=== PATIENT | male | born 1985 | race Hispanic/Latino ===

== ENCOUNTER 2020-06-19 16:39 | Emergency (ER) | payer SELFPAY ==
[~2020-06-19] VITALS: Ht 162.6 cm; Wt 90.0 kg
[~2020-06-19 16:39] MED LIST: ALDACTONE25 MG PO; ATIVAN1 M1 PO; CIPROFLOXACN500 MG PO; LASIX 40 MG40 MG/TAB PO; LORTAB 7.57.5 MG PO; METRONIDAZOLE500 MG PO; SPIRONOLACTONE25 MG PO; VITAMIN B-625 MG PO
[2020-06-19 17:33] LABS: HEMATOCRIT 33.9 % (39.0-50.0); HEMOGLOBIN 11.5 g/dl (14.0-18.0); IMMATURE GRANULOCYTES 0.5 % (0.0-5.0); MEAN CORPUSCULAR HGB 35.3 pG CALC (26.0-32.0); MEAN CORPUSCULAR HGB CONC 33.9 g/dL CAL (32.0-36.0); NEUT# 11.85 thou/uL (1.82-7.42); RED BLOOD COUNT 3.26 mill/uL (4.70-6.10); RED CELL DISTRI WIDTH 15.7 % (11.5-15.5)
[2020-06-19 17:53] LABS: BUN 4 mg/dL (9-20); BUN/CREATININE RATIO 11 (12-20 (CALC)); CARBON DIOXIDE 27 mmol/l (22-30); CREATININE 0.3 mg/dL (0.7-1.3); GFR > 60 ML/MIN (>=60 (CALC)); GFR FOR AFR.AMER. > 60 ML/MIN (>=60 (CALC)); LIPASE 217 u/l (23-300)
[2020-06-19 17:57] LABS: ALBUMIN 3.3 g/dL (3.2-5.0); ALKALINE PHOSPHATASE 409 u/l (38-126); ANION GAP 15 (6-22 (CALC)); BILIRUBIN, TOTAL 3.5 mg/dL (0.0-1.4); CHLORIDE 87 mmol/l (95-108); SGOT/AST 123 u/l (17-59); SODIUM 125 mmol/l (137-146)
[2020-06-19 19:08] VITALS: BP 124/89
[2020-06-19 19:20] LABS: INTERNATIONAL NORMALIZED RATIO 1.3 RATIO (0.7-1.3); PROTHROMBIN TIME 12.4 SECONDS (9.0-12.5)
== END 2020-06-19 19:08 | disposition short-term general hospital (02) | DRG 434 ==
LOC: ED 16:39
PROVIDERS: Family Medicine
DX: K70.31 Alcoholic cirrhosis of liver with ascites (principal); F10.10 Alcohol abuse, uncomplicated; Z20.828 Contact with and (suspected) exposure to other viral communicable diseases

== ENCOUNTER 2020-11-14 15:30 | Inpatient (IN) | payer SELFPAY ==
[~2020-11-14] VITALS: Ht 162.6 cm; Wt 63.6 kg
--- NOTE | 2020-11-14 15:31 | NUR ---
PT IMMEADIATELY TO ROOM # [address] NOGUEIRA BEDSIDE FOR EVAL.
[2020-11-14 16:05] LABS: HEMATOCRIT 35.5 % (39.0-50.0); HEMOGLOBIN 11.5 g/dl (14.0-18.0); IMMATURE GRANULOCYTES 0.1 % (0.0-5.0); MEAN CELL VOLUME 104.7 fL CALC (80.0-100.0); MEAN CORPUSCULAR HGB 33.9 pG CALC (26.0-32.0); MEAN CORPUSCULAR HGB CONC 32.4 g/dL CAL (32.0-36.0); NEUT# 5.12 thou/uL (1.82-7.42); RED BLOOD COUNT 3.39 mill/uL (4.70-6.10); RED CELL DISTRI WIDTH 13.6 % (11.5-15.5)
[2020-11-14 16:23] LABS: URINE BILIRUBIN - DIPSTICK NEGATIVE (NEGATIVE); URINE BLOOD DIPSTICK NEGATIVE (NEGATIVE); URINE COLOR YELLOW; URINE GLUCOSE - DIPSTICK NEGATIVE (NEGATIVE); URINE KETONE NEGATIVE (NEGATIVE); URINE LEUK ESTERASE NEGATIVE (NEGATIVE); URINE NITRITE - DIPSTICK NEGATIVE (Negative); URINE PROTEIN - DIPSTICK NEGATIVE (NEG-TRACE); URINE SPECIFIC GRAVITY >=1.030; URINE UROBILINOGEN - DIPSTICK 0.2 E.U./dL (0.2)
[2020-11-14 16:24] LABS: ALBUMIN 3.5 g/dL (3.2-5.0); ALKALINE PHOSPHATASE 253 u/l (38-126); AMYLASE 75 u/l (30-110); BUN 7 mg/dL (9-20); BUN/CREATININE RATIO 17 (12-20 (CALC)); CREATININE 0.4 mg/dL (0.7-1.3); GFR > 60 ML/MIN (>=60 (CALC)); GFR FOR AFR.AMER. > 60 ML/MIN (>=60 (CALC)); LIPASE 123 u/l (23-300); POTASSIUM 3.4 mmol/l (3.5-5.1); SGOT/AST 46 u/l (17-59)
[2020-11-14 16:29] LABS: ANION GAP 9 (6-22 (CALC)); BILIRUBIN, TOTAL 1.8 mg/dL (0.0-1.4); CARBON DIOXIDE 33 mmol/l (22-30); CHLORIDE 99 mmol/l (95-108); SODIUM 138 mmol/l (137-146); TOTAL PROTEIN 9.7 g/dL (6.3-8.2)
[2020-11-14 16:33] LABS: ACT PARTIAL THROMBO TIME 31.2 SECONDS (20.0-32.5); INTERNATIONAL NORMALIZED RATIO 1.3 RATIO (0.7-1.3); PROTHROMBIN TIME 12.8 SECONDS (9.0-12.5)
--- NOTE | 2020-11-14 17:28 | NUR ---
PT CONTINUING TO BE TAPPED AT THIS TIME BY ED PHYSICIAN. 10LITERS OF FLUID REMOVED CURRENTLY. TOLERATING WELL. AT BEDSIDE. BP IMPROVED.
--- NOTE | 2020-11-14 18:49 | NUR ---
PT RESTING. VITALS STABLE ON MONITOR. REMAINS AT BEDSIDE. REPORT GIVEN TO CHUCK AMARO.
--- NOTE | 2020-11-14 20:00 | NUR ---
ATTEMPTED TO CALL REPORT. RN NOT AVAILABLE.
--- NOTE | 2020-11-14 21:00 | NUR ---
ATTEMPTED TO CALL REPORT. RN NOT AVAILABLE.
--- NOTE | 2020-11-14 21:23 | NUR ---
PARACENTESIS DRAIN DISLODGED. ADVISED FEDERICO SALINAS, REPEATER CHIEF
--- NOTE | 2020-11-14 22:05 | NUR ---
Admission Note Report Given to: CHUCK HOWARD Transported by: Wheelchair X Stretcher Transported with: X Nurse Transporter X Patent IV O2 City Superintendent Location: ICU X [facility]
[2020-11-15 04:00] VITALS: BP 109/58
[2020-11-15 05:58] LABS: HEMATOCRIT 32.6 % (39.0-50.0); HEMOGLOBIN 10.5 g/dl (14.0-18.0); IMMATURE GRANULOCYTES 0.1 % (0.0-5.0); MEAN CELL VOLUME 103.2 fL CALC (80.0-100.0); MEAN CORPUSCULAR HGB 33.2 pG CALC (26.0-32.0); MEAN CORPUSCULAR HGB CONC 32.2 g/dL CAL (32.0-36.0); NEUT# 5.62 thou/uL (1.82-7.42); RED BLOOD COUNT 3.16 mill/uL (4.70-6.10); RED CELL DISTRI WIDTH 13.3 % (11.5-15.5)
[2020-11-15 06:16] LABS: ALBUMIN 2.8 g/dL (3.2-5.0); ALKALINE PHOSPHATASE 149 u/l (38-126); ANION GAP 7 (6-22 (CALC)); BUN 4 mg/dL (9-20); BUN/CREATININE RATIO 12 (12-20 (CALC)); CARBON DIOXIDE 35 mmol/l (22-30); CHLORIDE 98 mmol/l (95-108); CREATININE 0.4 mg/dL (0.7-1.3); GFR > 60 ML/MIN (>=60 (CALC)); GFR FOR AFR.AMER. > 60 ML/MIN (>=60 (CALC)); POTASSIUM 3.8 mmol/l (3.5-5.1); SGOT/AST 35 u/l (17-59); SODIUM 136 mmol/l (137-146)
[2020-11-15 06:17] LABS: BILIRUBIN, TOTAL 3.4 mg/dL (0.0-1.4); TOTAL PROTEIN 6.8 g/dL (6.3-8.2)
[2020-11-15 07:12] VITALS: BP 103/70
--- NOTE | 2020-11-15 07:12 | NUR ---
PT IN BED WATCHING TV. A&O X3. O2 VIA ROOM AIR 87-88%. O2 VIA NC @2L APPLIED, O2 SUSTAINING 90-93%. ABD DISTENDED AND FIRM, CREPITUS FLET UPON PALPATION OF ABD. PER LOAN INTERVIEWER MORTGAGE REPORT AFTER PT BEING TAPPED IN ED AND REMOVING 12.5L OF FLUID, PT CONTINUED TO DRAIN AND COLOSTOMY BAG WAS PLACED TO HELP WITH DRAINAGE. UPON ASSESSMENT NO ACTIVE DRAINAGE NOTED. PT REPORTS NOT BEING ABLE TO FOLLOW UP WITH PCP OR OBTAIN MEDICATIONS THAT WERE NEEDED DUE TO HIS FINANCIAL STATUS. ASSESSMENT COMPLETED. DISCUSSED POC. CALL LIGHT IN REACH. CONTINUE TO MONITOR.
--- NOTE | 2020-11-15 07:19 | NUR ---
pt admitted to [facility] floor from ER on the evening of 11/14/20, pt alert and able to make needs known, severe abd ascites noted medicated for pain twice this shift with good results, no acute disteress noted at this time
--- NOTE | 2020-11-15 08:45 | NUR ---
DR PINEDA AT BEDSIDE DISCUSSING POC
[2020-11-15 10:50] VITALS: BP 125/81
--- NOTE | 2020-11-15 12:07 | NUR ---
PT C/O OF PAIN 08/03. PT MEDICATED WITH PRN PAIN MEDICATION.
[2020-11-15 15:25] VITALS: BP 90/53
--- NOTE | 2020-11-15 17:11 | NUR ---
PT MEDICATED WITH PAIN MEDICATION. PAIN 9/10. WILL REASSESS PAIN. PT CURRENTLY LEAKING AT TAPPING SITE, GOWN AND SHEETS SATURATED. COLOSTOMY BAG PLACED ON SITE. FLUID COLLECTING IN COLOSTOMY BAG. YELLOW AND CLEAR IN APPEARANCE. PT REPORTS IMPROVEMENTS NOTED IN HIS LEG SWELLING AND ABD SWELLING. ABD GIRTH SLIGHTLY SMALLER COMPARED TO THIS MORNING, NOT CREPITUS FELT. CALL LIGHT IN REACH. CONTINUE TO MONITOR.
[2020-11-15 19:11] VITALS: BP 98/53
--- NOTE | 2020-11-15 21:20 | NUR ---
ASSESSMENT COMPLETED AND MEDICATION ADMINISTERED AT THIS TIME. R.SIDE FLANK PUCTURE WOUND IS DRAINING CLEAR YELLOW DRAINAGE COLLECTED IN COLOSTOMY BAG, EMPTIED AT 400CC. URINAL EMPTIED ALSO AT THIS TIME 350CC OF FIDEL URINE EMPTIED. PT MEDICATED FOR PAIN REPORTED IN ABD, BACK AND BLE. HE REPORTS PAIN RADIATING FROM ABD DOWN TO HIS LEGS. PT APPEARS LOCX4, BROKEN UKRAINIAN/ASSISTANCE TRANSLATING PROVIDED BY EMPLOYEE COMMUNICATIONS MANAGER ON FLOOR. PT ALSO ASKED FOR ICECREAM/PROVIDED. CALL LIGHT W/IN REACH.
--- NOTE | 2020-11-16 00:53 | NUR ---
PT MEDICATED FOR PAIN, HE WAS HEARD WRITHING IN PAIN OUT IN THE CLINE. PT REPORTS 10/10 ON PAIN SCALE. REPORTS PAIN IS ALL OVER, STARTING IN UPPER ABD AND RADIATING TO FEET. TRANSLATION BY JESSI RICHTER. PT PROVIDED JUICE AND WATER REQUESTED AT THIS TIME. SITE TO RIGHT FLANK DRAINING INTO COLOSTOMY BAG, EMPTIED OF 400CC OF CLEAR YELLOW DRAINAGE AT THIS TIME.
--- NOTE | 2020-11-16 02:14 | NUR ---
PT APPEARS TO BE SLEEPING AT THIS TIME. DID NOT AWAKE TO MY ENTERING ROOM.
[2020-11-16 03:56] VITALS: BP 106/69
[2020-11-16 05:31] LABS: HEMATOCRIT 33.3 % (39.0-50.0); HEMOGLOBIN 10.7 g/dl (14.0-18.0); MEAN CELL VOLUME 103.4 fL CALC (80.0-100.0); MEAN CORPUSCULAR HGB 33.2 pG CALC (26.0-32.0); MEAN CORPUSCULAR HGB CONC 32.1 g/dL CAL (32.0-36.0); RED BLOOD COUNT 3.22 mill/uL (4.70-6.10); RED CELL DISTRI WIDTH 13.2 % (11.5-15.5)
[2020-11-16 05:55] LABS: ANION GAP 7 (6-22 (CALC)); BUN 6 mg/dL (9-20); BUN/CREATININE RATIO 14 (12-20 (CALC)); CARBON DIOXIDE 36 mmol/l (22-30); CHLORIDE 95 mmol/l (95-108); CREATININE 0.4 mg/dL (0.7-1.3); GFR > 60 ML/MIN (>=60 (CALC)); GFR FOR AFR.AMER. > 60 ML/MIN (>=60 (CALC)); MAGNESIUM 1.6 mg/dL (1.6-2.3); POTASSIUM 3.7 mmol/l (3.5-5.1); SODIUM 134 mmol/l (137-146)
--- NOTE | 2020-11-16 06:03 | NUR ---
PT CALLED FOR PAIN MEDICATION. HE WAS CRYING IN PAIN WHEN I ENTERED THE ROOM. HE REPORTS THAT THE MORPHINE DOES HELP, IT JUST DOESN'T LAST LONG ENOUGH. PT 500CC OF CLEAR YELLOW DRAINAGE EMPTIED FROM PEROCENTESIS SITE TO RIGHT FLANK SIDE. ABD IS VERY DISTENDED. PT IS ASKING FOR JUICE/PROVIDED.
--- NOTE | 2020-11-16 07:33 | NUR ---
Patient is screened for intervention and no needs are identified at this time
[2020-11-16 08:00] VITALS: BP 103/57
--- NOTE | 2020-11-16 08:00 | NUR ---
ASSESSMENT IS COMPLTED: IV SITE IS FREE FROM REDNESS OR EDEMA. HR IS REG,PULSES ARE FAST, ABD IS DISTENDED AND FIRN, COLOSTOMY BAG THAT IS ON COLLECTING CLEAR YELLOW ASCITES FLUID. BREATH SOUNDS CLEAR AND DIMINISHED BILATERALLY.. CONTINEU TO OSBERVE AND MONITOR,.
--- NOTE | 2020-11-16 12:15 | NUR ---
PT IS RELAXING IN BED WITH NO DISTRES NOTED. IV SITE IS FREE FROM REDNESS OR EDEMA.
[2020-11-16 16:00] VITALS: BP 123/71
--- NOTE | 2020-11-16 16:00 | NUR ---
PT IS RELAXING IN BED NO DISTRESS NOTED
[2020-11-16 20:00] VITALS: BP 106/58
[2020-11-16 20:50] VITALS: BP 106/58
--- NOTE | 2020-11-16 21:15 | NUR ---
OTHER NURSE ON THE FLOOR MEDICATED PT FOR PAIN 10/10 ON PAIN SCALE AND PM MEDICATION. HE WAS CRYING IN PAIN SHE REPORTED. BUT SHE WAS LEAVING THE ROOM, THE PT ASKED FOR ICECREAM/PROVIDED.
--- NOTE | 2020-11-16 22:05 | NUR ---
ASSESSMENT COMPLETED AT THIS TIME AND DRAINAGE FROM RIGHT FLANK PUNCTURE SITE EMPTIED OF 400CC OF CLEAR YELLOW DISCHARGE. ACTIVE BOWEL SOUNDS, BUT ABD IS VERY DISTENDED AND MODERATELY FIRM. HERNIA VISUALIZED IN UMBILICUS AREA. LUNG SOUNDS ARE DIMINISHED, WITH MILD WHEEZE TO UPPER LOBES. PT REPORTS SMALL AMOUNT OF PAIN AT THIS TIME, STATES THAT THE MEDICATION ADMINISTERED DID HELP. HE IS ASKING FOR SOME TYPE OF FRUIT, WILL PROVIDE FRUIT CUP IF AVAILABLE.
--- NOTE | 2020-11-17 02:20 | NUR ---
PT MEDICATED FOR PAIN 9/10 ON PAIN SCALE. HE IS IN BED MOANING AND GROANING, HOLDING TIGHTLY TO BED RAIL. DRAINAGE FROM R.FLANK SIDE EMPTIED @300CC OF CLEAR THICK YELLOW DRAINAGE. WILL FOLLOW-UP FOR PAIN MONITORING. BREATH SOUNDS ARE CLEAR AT THIS TIME.
--- NOTE | 2020-11-17 03:49 | NUR ---
PT WAS ASLEEP I ENTERED THE ROOM, AWOKE TO MY ENTRANCE. V/S ASSESSED. HE IS HEARD MAKING SLIGHT MOANING SOUNDS, BUT RETURNS TO SLEEP PRIOR TO MY LEAVING THE ROOM.
[2020-11-17 03:51] VITALS: BP 101/66
--- NOTE | 2020-11-17 06:31 | NUR ---
PT MEDICATED FOR PAIN 10/10 ON PAIN SCALE. HE WAS CRYING OUT IN PAIN WITH TEARS ROLLING DOWN HIS FACE WHEN I ENTERED THE ROOM. APPEARS MUCH MORE COMFORTABLE PRIOR TO MY LEAVING THE ROOM. HE ASKED FOR ICECREAM AND JUICE I WAS LEAVING THE ROOM.
[2020-11-17 07:38] VITALS: BP 100/65
--- NOTE | 2020-11-17 08:45 | NUR ---
SHIFT CHANGE REPORT, PT AWAKE ALERT AND ORIENTED, C/O ABD PAIN @ 8/10, ABD SEVERELY DISTENDED WITH HYPERACTIVE SOUNDS, ASSISTED WITH SITTING UP AT BEDSIDE, MEAL TRAY SET UP, CALL PAUL IN REACH.
--- NOTE | 2020-11-17 12:00 | NUR ---
RESTING IN BED, MEDICAL TEAM ROUNDED, WILL CONTINUE TO MONITOR.
[2020-11-17 15:10] VITALS: BP 114/66
--- NOTE | 2020-11-17 15:56 | NUR ---
LYING IN SUPINE POSITION IN BED, PAIN CONTINUES WITH MINIMAL IMPROVEMENT WITH ANALGESICS, PROFUSE DRAINAGE FROM PARACENTHESIS SITE TO R. ABDOMEN CONTINUES, NEEDS ADDRESSED.
--- NOTE | 2020-11-17 19:55 | NUR ---
PATIENT RESTING IN BED WITH HOB ELEVATED MOANING AND CRYING IN ABD PAIN-MOSTLY YI SPEAKING. MEDICATED WITH MORPHINE 2MG IVF FOR SEVERE PAIN, ABD IS SEVERELY DISTENDED AND DRAINING SEROUS FLUID FROM RIGHT ABD PARACENTESIS SITE-P[OUCH INTACT AT THIS TIME. VOIDED 300CC OF FIDEL URINE IN URINAL. SALINE LOCK TO LAC SITE INTACT AND HEALTHY WITH GOOD BLOOD RETURN. CALL LIGHT IN REACH. WILL CONT TO MONITOR.
[2020-11-17 20:00] VITALS: BP 108/63
--- NOTE | 2020-11-17 21:42 | NUR ---
PATIENT RESTING IN BED-STILL WITH C/O ABD PAIN-08/03 MEDICATED WITH ROXICODONE 10MG PO ORDERED. VOIDED 300CC OF FIDEL URINE IN URINAL. CALL LIGHT IN REACH. WILL CONT TO MONITOR.
--- NOTE | 2020-11-17 22:28 | NUR ---
PATIENT RESTING IN BED-STATES SOME RELIEF FROM ROXICODONE GIVEN. ASKING FOR ICE CREAM. PARACENTESIS SITE POUCH EMPTIED FOR 200CC OF CLEAR YELLOW FLUID. CALL LIGHT IN REACH, WILL CONT TO MONITOR.
--- NOTE | 2020-11-17 23:53 | NUR ---
PATIENT RESTING IN BED-MOANING IN PAIN-10/10 ON PAIN SCALE PER PATIENT. MEDICATED WITH DILAUDID 1MG IVP FOR PAIN. CALL LIGHT IN REACH. WILL CONT TO MONITOR.
[2020-11-18] VITALS (7 sets, daily range): BP systolic 98–124; BP diastolic 64–79
--- NOTE | 2020-11-18 03:15 | NUR ---
PATIENT MOANING IN PAIN AGAIN-10/10 ON PAIN SCALE. TOO EARLY FOR DILAUDID-MEDICATED WITH ROXICODONE 10MG PO. VOIDED 400CC OF FIDEL URINE IN URINAL. PARACENRESIS SITE DRAINAGE 300CC OF CLEAR YELLOW FLUID. CALL LIGHT IN REACH. WILL CONT TO MONITOR.
--- NOTE | 2020-11-18 04:23 | NUR ---
PATIENT WITH LITTLE OR NO RELIEF FROM ROXICODONE GIVEN EARLIER. PATIENT STATES 10/10 ON PAIN SCALE. PATIENT WITH SEVERE ASCITES AND CONSTANT PAIN. PARACENTESIS SITE CONT TO DRAIN YELLOW FLUID CONSTANTLY. MEDICATED WITH DILAUDID 1MG IVP VIA LEFT AC SITE. SITE REMAINS HEALTHY. CALL LIGHT IN REACH. WILL CONT TO MONITOR.
--- NOTE | 2020-11-18 04:49 | NUR ---
PATIENT RESTING IN BED-STATES THAT HIS PAIN IS NOW 6/10. NO FURTHER COMP[LAINTS. CALL LIGHT IN REACH. WILL CONT TO MONITOR.
[2020-11-18 04:51] LABS: HEMATOCRIT 32.1 % (39.0-50.0); HEMOGLOBIN 10.7 g/dl (14.0-18.0); IMMATURE GRANULOCYTES 0.3 % (0.0-5.0); MEAN CELL VOLUME 100.9 fL CALC (80.0-100.0); MEAN CORPUSCULAR HGB 33.6 pG CALC (26.0-32.0); MEAN CORPUSCULAR HGB CONC 33.3 g/dL CAL (32.0-36.0); NEUT# 4.57 thou/uL (1.82-7.42); RED BLOOD COUNT 3.18 mill/uL (4.70-6.10); RED CELL DISTRI WIDTH 12.9 % (11.5-15.5)
[2020-11-18 05:08] LABS: INTERNATIONAL NORMALIZED RATIO 1.4 RATIO (0.7-1.3); PROTHROMBIN TIME 13.4 SECONDS (9.0-12.5)
[2020-11-18 05:12] LABS: ALBUMIN 2.5 g/dL (3.2-5.0); ALKALINE PHOSPHATASE 168 u/l (38-126); BUN 8 mg/dL (9-20); BUN/CREATININE RATIO 22 (12-20 (CALC)); CARBON DIOXIDE 33 mmol/l (22-30); CHLORIDE 96 mmol/l (95-108); CREATININE 0.4 mg/dL (0.7-1.3); GFR > 60 ML/MIN (>=60 (CALC)); GFR FOR AFR.AMER. > 60 ML/MIN (>=60 (CALC)); SGOT/AST 38 u/l (17-59); SODIUM 130 mmol/l (137-146); TOTAL PROTEIN 6.7 g/dL (6.3-8.2)
[2020-11-18 05:13] LABS: ANION GAP 6 (6-22 (CALC)); BILIRUBIN, TOTAL 1.5 mg/dL (0.0-1.4); POTASSIUM 4.6 mmol/l (3.5-5.1)
--- NOTE | 2020-11-18 05:44 | NUR ---
PATIENT UP TO THE BR-THINKS THAT HE HAS TO HAVE BM BUT ONLY GAS. BACK IN BED. PARACENTESIS SITE DRAINED ANOTHER 100CC OF CLEAR YELLOW FLUID. IV SITE TO LEFT AC INTACT AND REMAINS HEALTHY. TAKING PO LIQUIDS AND TOLERATING WELL. CALL LIGHT IN REACH. WILL CONT TO MONITOR.
--- NOTE | 2020-11-18 07:23 | NUR ---
PT RESTING IN BED, NO SIGNS OF DISTRESS NOTED, RESP EVEN AND UNLABORED. PT ALERT AND ORIENTED X3, DISCUSSED POC, PT ABD IS DISTENDED, NOTED DRAINAGE TO INCISION SITE FROM LAST PARACENTESIS. DRAINING INTO COLOSTOMY BAG, CLEAR YELLOW DRAINAGE. NOTED JAUDICE TO EYES, VERY DRY SKIN. PT MEDICATED PER MAR. ASSESSMENT COMPLETED, CALL LIGHT IN REACH,CONTINUE TO MONITOR.
--- NOTE | 2020-11-18 09:00 | NUR ---
INFORMATION CONSULTANT AT BEDSIDE TO MEDICATE PT FOR PAIN, MD AT BEDSIDE TO DISCUSS POC, PT ENCOURAGED TO GET OUT OF BED, PT STATES HE IS IN TOO MUCH PAIN, PT MEDICATED WITH DILAUDID. CALL LIGHT IN REACH,CONTINUE TO MONITOR.
--- NOTE | 2020-11-18 11:46 | NUR ---
PT RESTING IN BED MEDICATED FOR PAIN, PT THEN ASKING WHEN HE CAN HAVE IV PAIN MEDICATION, INFORMED PT THAT PAIN MEDICATION WILL NOT TAKE PAIN COMPLETELY AWAY BUT WILL HELP SO PT MAY GET OUT OF BED AND BE COMFORTABLE, AGAIN ENCOURAGED PT TO GET OUT OF BED, CALL LIGHT IN REACH,CONTINUE TO MONITOR.
--- NOTE | 2020-11-18 13:29 | NUR ---
PT AMBULATED BACK FROM BATHROOM, STATES HE IS PASSING GAS BUT NO BM, PT MEDICATED FOR PAIN, CALL LIGHT IN REACH,CONTINUE TO MONITOR.
--- NOTE | 2020-11-18 16:29 | NUR ---
PT RESTING IN RECLINER AT BEDSIDE, NO SIGNS OF DISTRESS NOTED, RESP EVEN AND UNLABORED. PT MEDICATED PER JAN. CALL LIGHT IN REACH,CONTINUE TO MONITOR.
--- NOTE | 2020-11-18 17:46 | NUR ---
PT RESTING IN BED C/O PAIN, BAG EMPTIED OF 100CC OF CLEAR STRAW-COLORED URINE. CALL LIGHT IN REACH, CONTINUE TO MONITOR.
--- NOTE | 2020-11-18 19:39 | NUR ---
ASSESSMENT COMPLETED. PT. SITTING UP AT THE SIDE OF THE BED C/O SLIGHT NAUSEA AND GIVEN L[place]ON [place]. PT. INQUIRING ABOUT PAIN MEDS AND REVIEWED FREQUENCIES WITH HIM; VERBALIZES UNDERSTANDING. EMPTIED 100 MLS FROM BAG TO RLQ OF YELLOW CLEAR DRAINAGE. ABD DISTENDED AND BS ACTIVE; URINAL AT BEDSIDE. CALL LIGHT IS IN REACH. WILL CONTINUE TO MONITOR.
--- NOTE | 2020-11-18 20:36 | NUR ---
PT. C/O ABDOMINAL PAIN AND MEDICATED WITH ORDERED PRN ROXICODONE; WILL REASSESS. ENCOURAGED TO CALL FOR ANY FURTHER NEEDS. AGAIN RE-EDCUATED ON TIMES FOR PRN MEDS AND NEEDING TO CALL FOR THEM WHEN NEEDED. CALL LIGHT IS IN REACH.
--- NOTE | 2020-11-18 21:57 | NUR ---
PT. EDUCATED ON TRYING TO WEAN OFF OF PRN IV PAIN MEDICATION HE HAS PO ON BOARD WELL MD WROTE IN PROGRESS NOTE. PT. CONTINUED TO REPORT HE NEEDS IT AT THIS TIME FOR ABDOMINAL PAIN; MEDICATED AT THIS TIME. WILL REASSESS.
--- NOTE | 2020-11-18 23:40 | NUR ---
PT. DENIES NEEDS/PAIN AT THIS TIME. BAG TO RLQ CHECKED AND HAS MINIMAL DRAINAGE NOTED. WILL CONTINUE TO MONITOR. ENCOURAGED TO CALL FOR ANY NEEDS.
--- NOTE | 2020-11-19 03:20 | NUR ---
PT. C/O ABD PAIN AND MEDICATED WITH ORDERED PRN ROXICODONE AND INSTRUCTED TO CALL IF PAIN NOT RELIEVED TO CALL FOR IV PRN MED IF NEEDED, REMINDED OF TRYING TO WEAN OFF OF IV DILAUDID FOR D/C AND VERBLAIZES UNDERSTANDING; NEW IV STARTED TO LELE X1 ATTEMPT, AND AM LABS DRAWN PER ORDER.
[2020-11-19 04:00] VITALS: BP 104/63
[2020-11-19 04:06] LABS: ALBUMIN 2.8 g/dL (3.2-5.0); ALKALINE PHOSPHATASE 209 u/l (38-126); ANION GAP 6 (6-22 (CALC)); BILIRUBIN, TOTAL 1.3 mg/dL (0.0-1.4); BUN 11 mg/dL (9-20); BUN/CREATININE RATIO 24 (12-20 (CALC)); CARBON DIOXIDE 37 mmol/l (22-30); CHLORIDE 92 mmol/l (95-108); CREATININE 0.5 mg/dL (0.7-1.3); GFR > 60 ML/MIN (>=60 (CALC)); GFR FOR AFR.AMER. > 60 ML/MIN (>=60 (CALC)); POTASSIUM 4.2 mmol/l (3.5-5.1); SGOT/AST 48 u/l (17-59); SODIUM 131 mmol/l (137-146); TOTAL PROTEIN 7.6 g/dL (6.3-8.2)
--- NOTE | 2020-11-19 05:03 | NUR ---
PT. MOANING IN PAIN AND MEDICATED WITH ORDERED PRN DILAUDID; WILL REASSESS. DENIES FURTHER NEEDS. CALL LIGHT IS IN REACH.
[2020-11-19 07:10] VITALS: BP 104/68
--- NOTE | 2020-11-19 07:10 | NUR ---
PT RESTING IN BED, NO SIGNS OF DISTRESS NOTED, RESP EVEN AND UNLABORED. PT ALERT AND ORIENTED X3, DROWSY, NO DRAINAGE TO BAG IN R SIDE OF ABD AT THIS TIME. ABD DISTENDED AND FIRM, PT STATES HE HAD A BM LAST NIGHT. ASSESSMENT COMPLETED, CALL LIGHT IN REACH,CONTINUE TO MONITOR.
--- NOTE | 2020-11-19 08:16 | NUR ---
PT MOANING IN PAIN CAN BE HEARD AT THE DESK, ENTERED ROOM PT STATES HE IS IN PAIN ALL OVER, NOTED PT HAS SCRATCHED HIMSELF TO BREAK THE SKIN, HE HAS AN AREA TO HIS L BUTTOCK, L SANCHEZ, AND TO HIS SCROTUM, PT MEDICATED FOR PAIN, DISCUSSED WITH PATTERN DESIGNER, ORDERS ENTERED. CALL LIGHT IN REACH,CONTINUE TO MONITOR.
--- NOTE | 2020-11-19 12:15 | NUR ---
TO SEE PT, DISCUSSED PLANS FOR PARACENTESIS TOMORROW, PT AGREES, CALL LIGHT IN REACH,CONTINUE TO MONITOR.
[2020-11-19 15:13] VITALS: BP 104/64
--- NOTE | 2020-11-19 16:11 | NUR ---
PT RESTING IN BED, NO SIGNS OF DISTRESS NOTED, RESP EVEN AND UNLABORED. PT VOICES NO NEEDS OR COMPLAINTS AT THIS TIME, CALL LIGHT IN REACH,CONTINUE TO MONITOR.
[2020-11-19 19:00] VITALS: BP 99/61
--- NOTE | 2020-11-19 21:53 | NUR ---
PT UP IN BATHROOM AND NAUSEA NOTED. ABLE TO MAKE NEEDS KNOWN. PT REQUESTING PAIN MEDICATIONS. WAS MEDICATED EARLIER WITH NO MILD EFFECTIVENESS. ABDOMNAL DISTENTION AND FIRM TO TOUCH. ABLE TO AMBULATE TO TOILET WITH NO ASSIST NEEDED. FLUIDS GIVEN AND TOLERATED WELL. WILL CONTINUE TO OBSERVE
[2020-11-20 04:00] VITALS: BP 110/69
--- NOTE | 2020-11-20 05:00 | NUR ---
PT IN BED WITH EYED CLOSED. COMPLAINED OF PAIN AT 6 ON SCALE OF 1-10 WITH 10 GREATEST TO ABDOMINAL AREA THAT IS SHARP AND CRAMPING. mEDICATED FOR PAIN PRESCRIBED BY MD. CONTINENT OF B/B AND USING URINAL. REQUESTED ICE CREAM THIS AM. UP AD CYNDI WITH NO COMPLICATIONS NOTED.
[2020-11-20 06:03] LABS: HEMATOCRIT 33.7 % (39.0-50.0); HEMOGLOBIN 11.1 g/dl (14.0-18.0); IMMATURE GRANULOCYTES 0.3 % (0.0-5.0); MEAN CELL VOLUME 101.5 fL CALC (80.0-100.0); MEAN CORPUSCULAR HGB 33.4 pG CALC (26.0-32.0); MEAN CORPUSCULAR HGB CONC 32.9 g/dL CAL (32.0-36.0); NEUT# 4.91 thou/uL (1.82-7.42); RED BLOOD COUNT 3.32 mill/uL (4.70-6.10); RED CELL DISTRI WIDTH 12.9 % (11.5-15.5)
[2020-11-20 06:28] LABS: ALBUMIN 2.6 g/dL (3.2-5.0); ALKALINE PHOSPHATASE 196 u/l (38-126); ANION GAP 8 (6-22 (CALC)); BILIRUBIN, TOTAL 1.3 mg/dL (0.0-1.4); BUN 9 mg/dL (9-20); BUN/CREATININE RATIO 22 (12-20 (CALC)); CARBON DIOXIDE 35 mmol/l (22-30); CHLORIDE 94 mmol/l (95-108); CREATININE 0.4 mg/dL (0.7-1.3); GFR > 60 ML/MIN (>=60 (CALC)); GFR FOR AFR.AMER. > 60 ML/MIN (>=60 (CALC)); POTASSIUM 4.1 mmol/l (3.5-5.1); SGOT/AST 42 u/l (17-59); SODIUM 133 mmol/l (137-146); TOTAL PROTEIN 7.2 g/dL (6.3-8.2)
[2020-11-20 06:31] LABS: INTERNATIONAL NORMALIZED RATIO 1.2 RATIO (0.7-1.3); PROTHROMBIN TIME 11.8 SECONDS (9.0-12.5)
[2020-11-20 08:00] VITALS: BP 110/69
--- NOTE | 2020-11-20 09:00 | NUR ---
PT SEEN AWAKE, ALERT, ORIENTED X 3. LUNGS CLEAR, RA. ABDOMEN DISTENDED SOFT. BM TODAY. SKIN INTACT. DRESSING APPLIED TO RIGHT ABDOMINAL DRAINAGE SITE FROM YESTERDAY PER DR HILL.
--- NOTE | 2020-11-20 13:00 | NUR ---
PT SEEN RESTING IN HIS BE, NO DISTRESS, NO COMPLAINTS.
[2020-11-20 15:30] VITALS: BP 113/66
--- NOTE | 2020-11-20 17:20 | NUR ---
PT SEEN RESTING IN THE BED WITH EYES CLOSED, NO EVIDENCE OF DISTRESS, NO COMPLAINT OF PAIN
[2020-11-20 19:00] VITALS: BP 107/70
--- NOTE | 2020-11-20 19:53 | NUR ---
PT RESTING IN BED, NO SIGNS OF DISTRESS NOTED, RESP EVEN AND UNLABORED. PT C/O BURINING TO HIS PENIS, NOTED OPEN AREA FROM SCRATCHING, PT STATES THE HYDROCORTISONE DOES NO HELP, PT GIVEN BARRIER CREAM TO PUT ON AREA. PT MEDICATED PER MAR. ABD DISTENDED AND FIRM, NO DRAINAGE NOTED TO PARACENTESIS SITE; DRESSING CDI. ASSESSMENT COMPLETED,CALL LIGHT IN REACH,CONTINUE TO MONITOR.
[2020-11-21 04:00] VITALS: BP 101/65
--- NOTE | 2020-11-21 04:14 | NUR ---
PT RESTING IN BED, NO SIGNS OF DISTRESS NOTED, RESP EVEN AND UNLABORED. CALL LIGHT IN REACH,CONTINUE TO MONITOR.
[2020-11-21 05:21] LABS: HEMATOCRIT 33.9 % (39.0-50.0); HEMOGLOBIN 11.3 g/dl (14.0-18.0); MEAN CELL VOLUME 100.9 fL CALC (80.0-100.0); MEAN CORPUSCULAR HGB 33.6 pG CALC (26.0-32.0); MEAN CORPUSCULAR HGB CONC 33.3 g/dL CAL (32.0-36.0); RED BLOOD COUNT 3.36 mill/uL (4.70-6.10); RED CELL DISTRI WIDTH 13.2 % (11.5-15.5)
[2020-11-21 05:54] LABS: ALBUMIN 2.8 g/dL (3.2-5.0); ALKALINE PHOSPHATASE 262 u/l (38-126); ANION GAP 10 (6-22 (CALC)); BILIRUBIN, TOTAL 1.1 mg/dL (0.0-1.4); BUN 9 mg/dL (9-20); BUN/CREATININE RATIO 17 (12-20 (CALC)); CARBON DIOXIDE 33 mmol/l (22-30); CHLORIDE 94 mmol/l (95-108); CREATININE 0.5 mg/dL (0.7-1.3); GFR > 60 ML/MIN (>=60 (CALC)); GFR FOR AFR.AMER. > 60 ML/MIN (>=60 (CALC)); POTASSIUM 4.2 mmol/l (3.5-5.1); SGOT/AST 47 u/l (17-59); SODIUM 132 mmol/l (137-146); TOTAL PROTEIN 7.6 g/dL (6.3-8.2)
[2020-11-21 07:40] VITALS: BP 103/66
--- NOTE | 2020-11-21 07:40 | NUR ---
ASSESSMENT IS COMPLETED: IV SITE IS FREE FROM REDNESS OR EDEMA. HR IS REG,PULSES ARE STRONG X4, ABD IS DISTENDED WITH ACTIVE BS. BREATH SOUNDS ARE CLEAR BILATERALLY.
--- NOTE | 2020-11-21 08:45 | NUR ---
PT TRANSPORTED TO HAVE PARACENTESIS COMPLETED.
--- NOTE | 2020-11-21 10:00 | NUR ---
PT RETURNED FROM HAVING A PARACENTESIS COMPLETED: C/O A LOT OF PAIN. INQUIRED ABOUT PAIN MEDICATION. WAS CHANGED ASKED THE [facility] . WAITING ON CONFIRMATION OF HOW MUCH THEY TOOK OUT,
--- NOTE | 2020-11-21 10:30 | NUR ---
OLEGARIO BEAN FROM RADIOLOGY TOOK 8.4LITERS OFF HIS ABD
--- NOTE | 2020-11-21 10:45 | NUR ---
PT IS CALMER NOW CONTINUE TO OSBERVE AND MONITOR.
[2020-11-21 11:00] VITALS: BP 97/71
--- NOTE | 2020-11-21 11:08 | NUR ---
PT IS NOW RELAXING IN BED WITH NO DISTRESS NOTED. IV SITE IS FREE FROM REDNESS OR EDEMA.
--- NOTE | 2020-11-21 12:15 | NUR ---
PT IS RELAXING IN BED WITH NO DISTRESS NOTED IV SITE IS FREE FROM REDNESS OR EDEMA.
[2020-11-21 15:30] VITALS: BP 109/70
--- NOTE | 2020-11-21 18:37 | NUR ---
PT HAS BEEN TALKING WITH FAMILY AND STATED SOMETHING ABOUT PAIN. " INQUIRED IF PT WAS HAVING PAIN , STATING IT COMES AND GOES".
--- NOTE | 2020-11-21 18:39 | NUR ---
PT IS RELAXING IN BED WITH NO DISTRESS NOTED.
[2020-11-21 19:00] VITALS: BP 102/55
--- NOTE | 2020-11-21 19:30 | NUR ---
PATIENT RESTING IN BED WITH HOB ELEVATED-AWAKE ALERT AND ORIENTEDX3. PATIENT WITH C/O ABD PAIN-WAS MEDICATED 2 HOURS AGO. PATIENT WITH IV SITE TO RIGHT UPPER ARM INTACT AND FLUSHED WITH NS-APPEARS HEALTHY AT THIS TIME. PATIENT WITH SMALL GAUZE DRESSING TO RIGHT AND LEFT ABD-PARACENTESIS SITES. NO DRAINAGE NOTED AT THIS TIME. SAFETY PRECAUTIONS REINFORCED. CALL LIGHT IN REACH. WILL CONT TO MONITOR.
[2020-11-22 04:00] VITALS: BP 103/61
--- NOTE | 2020-11-22 04:08 | NUR ---
PATIENT APPEARS SLEEPING AT THIS TIME WITH EYES CLOSED. RESP ARE EVEN AND UNLABORED. SALINE LOCK TO RIGHT UPPER ARM INTACT. CALL LIGHT IN REACH. WILL CONT TO MONITOR.
--- NOTE | 2020-11-22 05:51 | NUR ---
PATIENT RESTING IN BED. DRESSINGS TO ABD CDI. MEDICATED FOR ABD PAIN-9/10 ON PAIN SCALE WITH RPOXICODONE 5MG PO. SALINE LOCK TO RIGHT UPPER ARM INTACT. VOIDING FIDEL URINE IN URINAL. CALL LIGHT IN REACH. WILL CONT TO MONTIOR.
[2020-11-22 07:25] VITALS: BP 117/70
--- NOTE | 2020-11-22 07:25 | NUR ---
ASSESSMENT IS COMPLETED: IV SITE IS FREE FROM REDNESS OR EDEMA. HR IS REG,PULSES ARE STRONG X4, ABD IS SOFT WITH ACTIVE BS. DRESSING ON L AND R ARE CDI MINIMAL DRAINAGE NOTED. CONTINUE TO OSBERVE AND MONITOR.
[2020-11-22] MEDS ORDERED: ALDACTONE25 MG PO (11:35)
[2020-11-22] MEDS ORDERED: LASIX 40 MG TAB40 MG PO (11:35)
--- NOTE | 2020-11-22 12:10 | NUR ---
PT IS RELAXING IN BED WITH NO DISTRESS NOTED.
--- NOTE | 2020-11-22 13:50 | NUR ---
IV SITE DISCONTINUED CATHETET INTACT. NOREDNES OR EDEMA. NOTED. DISCHARGE INSTRUCTIONS GIVEN AND INTERPRETED BY SUELLEN RICHTER. PT VERBALIZED UNDERSTANDING. CONTINUE TO OBSERVE AND MONITOR.
--- NOTE | 2020-11-22 14:00 | NUR ---
Discharge instructions given. Patient verbalizes understanding of same. Discharged in stable condition via Wheelchair to Home with family. All belongings sent with pt.
== END 2020-11-22 13:53 | disposition home or self-care (01) | DRG 433 ==
LOC: ED 15:30 → ED-I 18:40 → ED 18:53 → MS2 18:54
PROVIDERS: Family Medicine; Nurse Practitioner; Nurse Practitioner Family; ADMIT Internal Medicine; ATTEND Internal Medicine
PROC: 0W9G30Z Drainage of Peritoneal Cavity with Drainage Device, Percutaneous Approach (ICD-10-PCS; principal; 2020-11-14)
PROC: 0W9G3ZZ Drainage of Peritoneal Cavity, Percutaneous Approach (ICD-10-PCS; 2020-11-21)
DX: K70.31 Alcoholic cirrhosis of liver with ascites (principal); K76.6 Portal hypertension; K72.90 Hepatic failure, unspecified without coma; F10.20 Alcohol dependence, uncomplicated; K43.9 Ventral hernia without obstruction or gangrene; R25.2 Cramp and spasm; Z91.19 Patient's noncompliance with other medical treatment and regimen; Z20.828 Contact with and (suspected) exposure to other viral communicable diseases
CPT/HCPCS: P9047